=== PATIENT | male | born 1975 | race Caucasian/White ===

== ENCOUNTER 2016-08-14 14:42 | Emergency (ER) | payer OTHER ==
[~2016-08-14] VITALS: Wt 90.0 kg
[~2016-08-14 14:42] MED LIST: AMLO-218 PO; HYDR12.58 PO
[2016-08-14] MEDS ORDERED: morphine 4 MG/ML VIAL IV STA (14:47)
[2016-08-14] MEDS ORDERED: ONDANSETRON 4 MG INJ IV STA (14:47)
[2016-08-14 15:10] LABS: ADD SCAN DIFF NO
[2016-08-14 15:24] LABS: BASOPHILS % 0.3 % (0.0-2.0); EOSINOPHILS # 0.1 10^3/ul (0.0-0.5); HEMATOCRIT 48.3 % (42.0-52.0); HEMOGLOBIN 17.1 g/dl (14.0-18.0); LYMPHOCYTES # 1.4 10^3/ul (0.8-2.9); LYMPHOCYTES % 15.8 % (15.0-51.0); MEAN CORPUSCULAR HEMOGLOBIN 30.1 pg (29.0-33.0); MEAN CORPUSCULAR HGB CONC 35.4 g/dl (32.0-37.0); MEAN PLATELET VOLUME 9.9 fl (7.4-10.4); MONOCYTE # 0.6 10^3/ul (0.3-0.9); MONOCYTES % 7.2 % (0.0-11.0); NEUTROPHIL # 6.5 10^3/ul (1.6-7.5); NEUTROPHILS % 75.1 % (39.0-77.0); PLATELET COUNT 227 10^3/UL (140-415); RED BLOOD COUNT 5.68 10^6/ul (4.70-6.10); RED CELL DISTRIBUTION WIDTH 12.8 % (11.5-14.5); WHITE BLOOD COUNT 8.6 10^3/ul (4.8-10.8)
[2016-08-14 15:28] LABS: INR 1.13; PROTIME 14.5 Sec (12.2-14.2); PT RATIO 1.1
[2016-08-14 15:32] LABS: ALBUMIN 4.4 g/dl (3.3-4.9); ALBUMIN/GLOBULIN RATIO 1.57; BILIRUBIN,INDIRECT 0.3 mg/dl (0-1.1); BILIRUBIN,TOTAL 0.3 mg/dl (0.2-1.3); CALCIUM 9.4 mg/dl (8.4-10.2); CREATININE 0.84 mg/dl (0.61-1.24); POTASSIUM 3.6 mmol/L (3.5-5.1); TOTAL PROTEIN 7.2 g/dl (6.1-8.1)
[2016-08-14] MEDS ORDERED: SOD CHLORIDE 0.9% 1,000 ML IV ONE (16:00)
--- NOTE | 2016-08-14 16:23 | RADRPT ---
PROCEDURE: XR Abdomen 2 Views. CLINICAL INDICATION: Abdominal pain. TECHNIQUE: AP supine and upright abdomen x-ray. COMPARISON: None. FINDINGS: Air and stool are seen scattered within the colon. No dilated loops of small bowel are observed. No organomegaly is observed. No abnormal calculi are seen. The osseous structures are intact. IMPRESSION: Nonspecific bowel gas pattern. If further characterization of the abdomen is needed CT should be considered. RPTAT: AA .Damon Vallecillo MD, Date Time Electronically viewed and signed by .Damon Vallecillo MD, on 08/14/2016 16:22 .P/
[2016-08-14] MEDS ORDERED: LOSA25TA5 PO (16:26)
[2016-08-14] MEDS ORDERED: FENTAnyl 50 MCG/ML VIAL IV ONE (16:30)
--- NOTE | 2016-08-14 18:02 | RADRPT ---
PROCEDURE: CT Abdomen and Pelvis without contrast. CLINICAL INDICATION: Right-sided and abdominal pain. Colonoscopy 2 days ago. TECHNIQUE: CT scan of the abdomen and pelvis without contrast was performed on a multidetector hig h-resolution CT scanner. The patient was scanned without intravenous contrast. Coronal and sagittal reformatted images were obtained from the axial source images. Images were reviewed on a high-resol [employer] PACS workstation. The total exam CTDI equals 13.89 mGy and the total exam DLP equals 877.34 mG y-cm. One or the following dose reduction techniques were used: -Automated exposure control. -Adjustment of the mA and/or KV according to patient's size. -Use of iterative reconstruction technique. COMPARISON: None. FINDINGS: Lung Bases: There is minimal bibasilar dependent subsegmental atelectasis. GI:. Unremarkable. Liver: There is borderline hepatomegaly 18.4 cm in length with a slight decrease in the overall atte nuation consistent with steatosis. Gallbladder: Unremarkable. Pancreas: Unremarkable. Spleen: Unremarkablel Adrenals: Unremarkable. Kidneys: There is no evidence of urolithiasis or obstructive uropathy. Bladder: Unremarkable. Pelvic Organs: Unremarkable. Skeleton: Normal for age. Other: N/A IMPRESSION: 1. Borderline hepatomegaly with a decrease in overall attenuation consistent with steatosis. 2. Scattered colonic diverticulosis without evidence of acute diverticulitis. There is no free air or evidence to suggest perforation. 3. Nonpathologic by size and morphologically criteria. 4. Normal appearing appendix visualized. RPTAT: [facility] Physician Arun Date Time Electronically viewed and signed by Physician Arun on 08/14/2016 18:02 /
[2016-08-14 18:50] VITALS: BP 144/98; PULSE 75; RESP 16
[2016-08-14] MEDS ORDERED: HYDR-906 PO (19:05)
[2016-08-14] MEDS ORDERED: NAPR-688 PO (19:05)
--- NOTE | 2016-08-14 19:10 | ERD ---
ER Documentation Chief Complaint Date/Time DATE: 08/14/16 TIME: 19:06 Chief Complaint upper abd pain rad to ruq. had colonoscopy this am. HPI This 41-year-old male presented for right upper quadrant and mid abdominal pain. He had a colonoscopy 2 days ago by , he stated he had abdominal pain even before the colonoscopy. A single polyp had been removed today. Obtained history also from Dr. Danny carmona regarding the patient because he himself wanted to be called. He stated that he had a very superficial incision in order to remove the polyp. Patient has increase of his prior abdominal pain. He has had some nausea with no vomiting. He has no diarrhea fevers or chills per ROS All systems reviewed and are negative except as per history of present illness. Medications Home Meds Active Scripts Naproxen* (Naproxen*) 500 Mg Tablet, 500 MG PO BID Y for PAIN, #14 TAB Prov:PORTER NOE DO 08/14/16 Hydrocodone/Acetaminophen ([place] 5-325 Tablet) 1 Each Tablet, 1 EACH PO Q6, #10 TAB Prov:PORTER NOE DO 08/14/16 Reported Medications Losartan Potassium* (Losartan Potassium*) 25 Mg Tablet, 25 MG PO DAILY, TAB 08/14/16 Discontinued Reported Medications Hydrochlorothiazide* (Hydrochlorothiazide*) 12.5 Mg Tablet, 12.5 MG PO DAILY, TAB 07/15/14 Amlodipine Besylate* (Norvasc*) 10 Mg Tablet, 10 MG PO DAILY, TAB 07/15/14 Allergies Allergies: Coded Allergies: No Known Allergy (Unverified , 08/14/16) PMhx/Soc History of Surgery: Yes (knee surgery) Hx Cardiac Disorders: Yes (htn) Hx Miscellaneous Medical Probl: Yes (rectal bleeding) Hx Alcohol Use: No Hx Substance Use: Yes (marijuana) Hx Tobacco Use: No Smoking Status: Never smoker Physical Exam Vitals Vital Signs Date Time Temp Pulse Resp B/P Pulse Ox O2 Delivery O2 Flow Rate FiO2 08/14/16 18:50 75 16 144/98 100 Room Air 08/14/16 17:17 61 16 149/105 100 Room Air 08/14/16 16:05 78 16 144/108 Room Air 08/14/16 14:43 98.1 90 28 162/115 98 Physical Exam Const: [] Head: Atraumatic Eyes: Normal Conjunctiva ENT: Normal External Ears, Nose and Mouth. Neck: Full range of motion..~ No meningismus. Resp: Clear to auscultation bilaterally Cardio: Regular rate and rhythm, no murmurs Abd: Soft, non tender, non distended. Normal bowel sounds Skin: No petechiae or rashes Back: No midline or flank tenderness Ext: No cyanosis, or edema Neur: Awake and alert Psych: Normal Mood and Affect Result Diagram: 08/14/16 1500 08/14/16 1500 Results 24 hrs Laboratory Tests Test 08/14/16 15:00 White Blood Count 8.610^3/ul Red Blood Count 5.6810^6/ul Hemoglobin 17.1g/dl Hematocrit 48.3% Mean Corpuscular Volume 85.0fl Mean Corpuscular Hemoglobin 30.1pg Mean Corpuscular Hemoglobin Concent 35.4g/dl Red Cell Distribution Width 12.8% Platelet Count 95925^3/UL Mean Platelet Volume 9.9fl Neutrophils % 75.1% Lymphocytes % 15.8% Monocytes % 7.2% Eosinophils % 1.0% Basophils % 0.3% Nucleated Red Blood Cells % 0.0/100WBC Neutrophils # 6.510^3/ul Lymphocytes # 1.410^3/ul Monocytes # 0.610^3/ul Eosinophils # 0.110^3/ul Basophils # 0.010^3/ul Nucleated Red Blood Cells # 0.010^3/ul Prothrombin Time 14.5Sec Prothrombin Time Ratio 1.1 INR International Normalized Ratio 1.13 Activated Partial Thromboplast Time 29.0Sec Sodium Level 142mmol/L Potassium Level 3.6mmol/L Chloride Level 104mmol/L Carbon Dioxide Level 26mmol/L Anion Gap 16 Blood Urea Nitrogen 15mg/dl Creatinine 0.84mg/dl Glucose Level 100mg/dl Calcium Level 9.4mg/dl Total Bilirubin 0.3mg/dl Direct Bilirubin 0.00mg/dl Indirect Bilirubin 0.3mg/dl Aspartate Amino Transf (AST/SGOT) 15IU/L Alanine Aminotransferase (ALT/SGPT) 22IU/L Alkaline Phosphatase 64IU/L Total Protein 7.2g/dl Albumin 4.4g/dl Globulin 2.80g/dl Albumin/Globulin Ratio 1.57 Lipase 58U/L Current Medications Medications (Trade) Dose Ordered Sig/Juan Route PRN Reason Start Time Stop Time Status Last Admin Dose Admin Morphine Sulfate (morphine) 4 mg ONCE STAT IV 08/14/16 14:47 08/14/16 14:49 DC 08/14/16 15:04 Ondansetron HCl 4 mg 4 mg ONCE STAT IV 08/14/16 14:47 08/14/16 14:49 DC 08/14/16 15:04 Sodium Chloride (NS) 1,000 ml @ 1,000 mls/hr Q1H ONCE IV 08/14/16 16:00 08/14/16 16:59 DC 08/14/16 16:00 Fentanyl (Sublimaze) 50 mcg ONCE ONCE IV 08/14/16 16:30 08/14/16 16:31 DC 08/14/16 17:05 Procedures/MDM Fatty liver and mild and: Status post colonoscopy. No other acute abnormalities are identified. Patient has no perforation which was the main concern after procedure, no signs of infection currently. Patient was given morphine and Zofran after which she felt much better. CT was obtained because the patient had continued pain after his x-ray. Also hydrated with a liter of normal saline. Discharge with follow-up with Dr. Napoleon Segura as well as primary care follow-up. Printed his CT results for him. Discharging him with [place] and naproxen for his pain and return precautions to the ER for any acute changes. CT abdomen pelvis interpretation: Fatty liver with hepatomegaly, no other acute process. I see no perforation, no abnormal fat stranding, no signs of obstruction. No fractures Abdominal x-ray interpretation 2 view: I see no signs of free air, no abnormal bowel gas pattern, no acute process. Departure Diagnosis: Primary Impression: Fatty liver Additional Impression: Abdominal pain Condition: Stable Patient Instructions: Abdominal Pain, Non-Alcoholic Fatty Liver Disease (NAFLD) Additional Instructions: Call your primary care doctor TOMORROW for an appointment during the next 1-2 days.See the doctor sooner or return here if your condition worsens before your appointment time. PORTER NOE DO Aug 14, 2016 19:10
== END 2016-08-14 19:40 | disposition home or self-care (01) ==
LOC: E/R 14:42
DX: K76.0 Fatty (change of) liver, not elsewhere classified (principal); I10 Essential (primary) hypertension
CPT/HCPCS: 36415; 74010; 74176; 80053; 83690; 85025; 85610; 85730; 96374; 96375; 99285; J2270; J2405; J3010; J7030